=== PATIENT | male | born 1945 | race African-American/Black ===

== ENCOUNTER 2016-12-19 02:04 | Emergency (ER) | payer OTHER ==
[~2016-12-19] VITALS: Ht 172.7 cm; Wt 97.9 kg
[~2016-12-19 02:04] MED LIST: AZITHROMYCIN250 MG1 PO; HYDROCHLOROTHIA50 MG PO; ZITHROMAX Z-PA250 MG PO
[2016-12-19] MEDS ORDERED: NAPROSYN500 MG PO (03:34)
[2016-12-19] MEDS ORDERED: NORCO 5/3251 TABLET PO (03:34)
[2016-12-19 03:50] VITALS: BP 150/88
== END 2016-12-19 03:51 | disposition home or self-care (01) ==
LOC: EME 02:04 → EXP 02:04
DX: S46.912A Strain of unspecified muscle, fascia and tendon at shoulder and upper arm level, left arm, initial encounter (principal); X58.XXXA Exposure to other specified factors, initial encounter; Y93.E9 Activity, other interior property and clothing maintenance; F17.200 Nicotine dependence, unspecified, uncomplicated
CPT/HCPCS: 73030; 99281; 99283

== ENCOUNTER → 2017-02-02 | Outpatient (CLI) | payer OTHER ==
[~2017-02-02] MED LIST changes: +NAPROSYN500 MG PO; +NORCO 5/3251 TABLET PO
== END | disposition home or self-care (01) ==
LOC: CDC 15:13
DX: Z01.810 Encounter for preprocedural cardiovascular examination (principal); M75.122 Complete rotator cuff tear or rupture of left shoulder, not specified as traumatic; R94.31 Abnormal electrocardiogram [ECG] [EKG]
CPT/HCPCS: 93000